=== PATIENT | male | born 1960 ===

== ENCOUNTER → 2018-05-28 08:21 | Outpatient (CLI) | payer OTHER, SELFPAY ==
[2018-05-28 09:52] LABS: BUN Creatinine Ratio 21.1 (6-22); Blood Urea Nitrogen 19 mg/dL (9-20); Calcium 9.1 mg/dL (8.4-10.2); Carbon Dioxide 27 mmol/L (22-32); Chloride 107 mmol/L (98-107); Estimated Glomerular Filt Rate > 60.0 mL/min (>60); Glucose 107 mg/dL (70-100); HEMOLYSIS < 15 (0-50); Sodium 144 mmol/L (137-145)
== END ==
PROVIDERS: PCP Internal Medicine; Visit Provider Internal Medicine Cardiovascular Disease
DX: I10 Essential (primary) hypertension (principal)
CPT/HCPCS: 36415; 80048

== ENCOUNTER → 2018-07-23 09:14 | Outpatient (CLI) | payer OTHER, SELFPAY ==
[2018-07-23 11:33] LABS: Cholesterol 193 mg/dL (140-199); HDL Cholesterol 31 mg/dL (40-60); LDL Cholesterol Calculated 96 mg/dL (<100); Triglycerides 331 mg/dL (35-150)
== END ==
PROVIDERS: PCP Internal Medicine; Visit Provider Internal Medicine Cardiovascular Disease
DX: E78.5 Hyperlipidemia, unspecified (principal)
CPT/HCPCS: 36415; 80061

== ENCOUNTER → 2019-02-18 09:30 | Outpatient (CLI) | payer OTHER, SELFPAY ==
[2019-02-18 10:38] LABS: Cholesterol 96 mg/dL (140-199); HDL Cholesterol 32 mg/dL (40-60); LDL Cholesterol Calculated 39 mg/dL (<100); Triglycerides 127 mg/dL (35-150)
== END ==
PROVIDERS: Family Provider Internal Medicine; PCP Internal Medicine; Visit Provider Internal Medicine Cardiovascular Disease
DX: E78.5 Hyperlipidemia, unspecified (principal)
CPT/HCPCS: 36415; 80061

== ENCOUNTER → 2019-08-07 07:52 | Outpatient (CLI) | payer OTHER, SELFPAY ==
[2019-08-07 08:46] LABS: Alanine Aminotransferase 32 IU/L (21-72); Albumin 4.4 g/dL (3.5-5.0); Albumin Globulin Ratio 1.8 (1.0-2.8); Alkaline Phosphatase 58 U/L (38-126); Aspartate Aminotransferase 29 IU/L (17-59); BUN Creatinine Ratio 18.9 (6-22); Bilirubin Total 0.5 mg/dL (0.2-1.3); Blood Urea Nitrogen 17 mg/dL (9-20); Calcium 9.6 mg/dL (8.4-10.2); Carbon Dioxide 27 mmol/L (22-32); Chloride 103 mmol/L (98-107); Cholesterol 96 mg/dL (140-199); Estimated Glomerular Filt Rate > 60.0 mL/min (>60); Globulin 2.4 g/dL (1.7-4.1); Glucose 110 mg/dL (80-110); HDL Cholesterol 33 mg/dL (40-60); HEMOLYSIS < 15 (0-50); LDL Cholesterol Calculated 20 mg/dL (<100); Potassium 4.4 mmol/L (3.4-5.1); Sodium 141 mmol/L (137-145); Total Protein 6.8 g/dL (6.3-8.2); Triglycerides 216 mg/dL (35-150)
== END ==
PROVIDERS: Family Provider Internal Medicine; PCP Internal Medicine; Visit Provider Internal Medicine Cardiovascular Disease
DX: E78.5 Hyperlipidemia, unspecified (principal)
CPT/HCPCS: 36415; 80053; 80061

== ENCOUNTER 2019-11-04 11:39 | Day surgery (SDC) | payer OTHER, SELFPAY ==
[2019-11-04] VITALS (8 sets, daily range): BP systolic 92–126; BP diastolic 58–71; PULSE 54–69; RESP 13–18; TEMP 36.2–36.9; O2SAT 92–99; BMI 38.7
[2019-11-04] MEDS: SODIUM CHLORIDE 0.9% 1,000 ML 200 ML IV (11:54)
--- NOTE | 2019-11-04 13:07 | P.HP_ITS ---
History of Present Illness History of Present Illness Date Patient Seen: 11/04/19 Time Patient Seen: 13:08 Chief complaint: [id number] SCREENING COLONOSCOPY Narrative: This is a 59-year-old man with history of obesity, hypertension, cardiac stents, prior screening colonoscopy 10 years ago which was normal. He is here for follow-up screening colonoscopy. He denies any melena, hematochezia, unexplained weight loss, or abdominal pain. ROS: Thirteen system review is negative other than as mentioned below and in HPI. GENERAL: Well groomed and cooperative. Morbidly obese, Appears stated age. Answers questions promptly and appropriately. Vital signs noted. HENT: Normocephalic, atraumatic. Hearing intact. Oral mucosa is pink and moist. EYES: Conjunctiva pink, sclera white, no periorbital swelling. CARDIOVASCULAR: Regular rate. No pedal edema. RESPIRATORY: Non tachypneic, breathing comfortably on room air. GASTROINTESTINAL: Abdomen soft and non-distended GENITALURINARY: No flank tenderness. MUSCULOSKELETAL: Equal tone and mass bilaterally. SKIN: Warm, dry, soft, appropriate color for ethnicity. No other lesions, rashes, or wounds. NEURO: Alert and Oriented X 3. No gross sensory deficits, or cognitive issues. PSYCH: Appropriate affect and mood. Patient History Medical History Asthma (Chronic) Chronic back pain (Chronic) Coronary artery disease (Chronic) Essential hypertension (Chronic) Gastroesophageal reflux disease without esophagitis (Chronic) Hyperlipidemia (Chronic 09/15/11) Obstructive sleep apnea syndrome (Chronic 09/15/11) Surgical History History of lumbosacral spine surgery (Inactive ~1979) Family & Social History Family History Family/Other Family history of diabetes mellitus Social History: household members spouse lives independently Yes caregiver/support person No Tobacco & Substance use: Smoking Status Never smoker alcohol intake current Meds Home Medications and Allergies Home Medications Medication Instructions Recorded Confirmed Type amlodipine 10 mg PO QDAY #30 tab 09/14/16 11/04/19 Rx lisinopril 10 mg PO QDAY #30 tab 09/14/16 11/04/19 Rx ibuprofen 600 mg PO Q6HP PRN #100 tab 11/07/17 11/04/19 Rx cyclobenzaprine 10 mg tablet 10 mg PO TID PRN tab 04/24/19 11/04/19 History evolocumab 140 mg/mL subcutaneous 140 mg SUBCUT Q2W 04/24/19 11/04/19 History pen injector atenolol 50 mg tablet 75 mg PO Q DAY #135 tab 05/12/19 11/04/19 Rx isosorbide mononitrate 60 mg 60 mg PO QAM #45 tab 08/25/19 11/04/19 Rx tablet,extended release 24 hr hydrocodone 7.5 mg-acetaminophen 1 - 2 tab PO Q6H PRN #90 tab 10/10/19 11/04/19 Rx 325 mg tablet aspirin 325 mg PO DAILY 11/04/19 11/04/19 History Allergies Allergy/AdvReac Type Severity Reaction Status Date / Time atorvastatin [ATORVASTATIN] AdvReac Intermediate MUSCLE PAIN Verified 11/04/19 12:04 rosuvastatin [From CRESTOR] AdvReac Intermediate MUSCLE PAIN Verified 11/04/19 12:04 Exam Vital Signs (past 8 hours): - 11/04/19 12:10 Temperature 97.2 F L Pulse Rate 60 Respiratory Rate 16 Blood Pressure 126/71 Pulse Oximetry 97 Oxygen Delivery Method Room Air Assessment & Plan Assessment and plan (1) At average risk for colon cancer: Current visit: Yes Status: Acute (2) Chronic back pain: Problem details: Pain agreement Qualifiers: Back pain location: low back pain Back pain laterality: unspecified Sciatica presence: unspecified whether sciatica present Qualified Code(s): M54.5 - Low back pain; G89.29 - Other chronic pain Current visit: No Status: Chronic (3) Coronary artery disease: Problem details: S/P drug eluting stent ramus intermedius Qualifiers: Coronary Disease-Associated Artery/Lesion type: [place] artery [place] vs. transplanted heart: [place] heart Associated angina: without angina Qualified Code(s): I25.10 - Atherosclerotic heart disease of [place] coronary artery without angina pectoris Current visit: No Status: Chronic (4) Obstructive sleep apnea syndrome: Current visit: No Status: Chronic (5) Obesity (BMI 30-39.9): Current visit: Yes Status: Acute Assessment & Plan narrative: Risks and benefits of screening colonoscopy and possible polypectomy were discussed with the patient including risk of bleeding, perforation, need for additional procedures, risks of anesthesia. The patient desires to proceed with colonoscopy procedure. Time Spent With Patient Time with patient: 15-24 minutes Quality VTE Deep Vein Thrombosis/Pulmonary Embolism Present on Admission: No
[2019-11-04] MEDS: fentaNYL 250 MCG/5 ML INJ IV (13:15)
[2019-11-04] MEDS: MIDAZOLAM 5 MG/5 ML VIAL IV (13:15)
--- NOTE | 2019-11-04 13:30 | PM.OP.ENDO ---
Operative Date/Time/Diagnoses Date of procedure: 11/04/19 Time of procedure: 13:30 Pre-op diagnosis: Average risk for colon cancer Post-op diagnosis: same Procedure & Clinicians Study performed: Screening Colonoscopy Same procedure as scheduled: Yes Indications: Average risk for colon cancer Surgeon: Jen Perez Procedure Notes SCOAP/Timeout: Performed Procedure in detail: The patient was brought to the room and placed in left lateral decubitus position with all bony prominences padded. A time-out was performed and then the patient was given procedural sedation starting with 4 mg of Versed and 100 mcg of fentanyl. Vitals were monitored throughout the procedure and remained stable. Once adequately sedated the procedure was begun. A rectal exam was performed revealing no abnormalities. The colonoscope was then introduced to the rectum and advanced to the cecum in the usual fashion. The cecum was identified by the appendiceal orifice, the mucosal try fold, and the ileocecal valve. The scope was then retracted while rotating side to side and examining each mucosal fold. At the conclusion procedure retroflexion was performed and small grade 1-2 internal hemorrhoids without stigmata of bleeding were seen. The scope was then withdrawn from the rectum the procedure was concluded. The patient tolerated the procedure well was transferred to the PACU in stable condition. Scope withdrawal time: 8 Sedation minutes: 17 Findings: internal hemorrhoids Specimen(s): none sent Complications: none Impression: Low-grade internal hemorrhoids, otherwise normal colon Post-procedure Recommendations: Colonscopy in 10 years Follow up: as needed Disposition: PACU
--- NOTE | 2019-11-04 13:40 | SUR.PHASEI ---
to pacu awake/drowsy, denies pain/nausea. Encouraged to sleep.
--- NOTE | 2019-11-04 13:47 | SUR.PHASEI ---
awake, oriented HOB elevated, juice given, denies pain
== END 2019-11-04 14:12 | disposition home or self-care (01) ==
PROVIDERS: Family Provider Internal Medicine; PCP Internal Medicine; Visit Provider Surgery
PROC: 0DJD8ZZ Inspection of Lower Intestinal Tract, Via Natural or Artificial Opening Endoscopic (ICD-10-PCS; CPT 45378; principal; 2019-11-04 13:00)
DX: Z12.11 Encounter for screening for malignant neoplasm of colon (principal); I25.10 Atherosclerotic heart disease of native coronary artery without angina pectoris; G47.33 Obstructive sleep apnea (adult) (pediatric); E66.9 Obesity, unspecified; K64.0 First degree hemorrhoids
CPT/HCPCS: 45378; 99152; J2250; J3010

== ENCOUNTER → 2020-07-13 12:01 | Outpatient (CLI) | payer OTHER, SELFPAY ==
[2020-07-13 14:05] LABS: Alanine Aminotransferase 29 IU/L (<50); Albumin 4.2 g/dL (3.5-5.0); Albumin Globulin Ratio 1.8 (1.0-2.8); Alkaline Phosphatase 61 U/L (38-126); Aspartate Aminotransferase 30 IU/L (17-59); BUN Creatinine Ratio 16.5 (6-22); Bilirubin Total 0.5 mg/dL (0.2-1.3); Blood Urea Nitrogen 14 mg/dL (9-20); Calcium 9.3 mg/dL (8.4-10.2); Carbon Dioxide 26 mmol/L (22-32); Chloride 108 mmol/L (98-107); Estimated Glomerular Filt Rate > 60.0 mL/min (>60); Globulin 2.3 g/dL (1.7-4.1); Glucose 95 mg/dL (80-110); HEMOLYSIS < 15 (0-50); Potassium 4.4 mmol/L (3.4-5.1); Sodium 140 mmol/L (137-145); Total Protein 6.5 g/dL (6.3-8.2)
[2020-07-13 14:29] LABS: Prostate Specific Antigen Scrn 0.726 ng/mL (0.1-4.0)
== END ==
PROVIDERS: Family Provider Internal Medicine; PCP Internal Medicine; Referring Provider Internal Medicine; Visit Provider Internal Medicine
DX: E78.2 Mixed hyperlipidemia (principal); I10 Essential (primary) hypertension; I25.10 Atherosclerotic heart disease of native coronary artery without angina pectoris; Z12.5 Encounter for screening for malignant neoplasm of prostate
CPT/HCPCS: 36415; 80053; G0103

== ENCOUNTER → 2021-06-27 08:36 | Outpatient (CLI) | payer OTHER, SELFPAY ==
[2021-06-27 10:14] LABS: Alanine Aminotransferase 25 IU/L (<50); Albumin 3.9 g/dL (3.5-5.0); Albumin Globulin Ratio 1.6 (1.0-2.8); Alkaline Phosphatase 51 U/L (38-126); Aspartate Aminotransferase 26 IU/L (17-59); BUN Creatinine Ratio 14.7 (6-22); Bilirubin Total 0.4 mg/dL (0.2-1.3); Blood Urea Nitrogen 14 mg/dL (9-20); Calcium 9.6 mg/dL (8.4-10.2); Carbon Dioxide 28 mmol/L (22-32); Chloride 108 mmol/L (98-107); Cholesterol 96 mg/dL (140-199); Estimated Glomerular Filt Rate > 60.0 mL/min (>60); Globulin 2.4 g/dL (1.7-4.1); Glucose 106 mg/dL (80-110); HDL Cholesterol 31 mg/dL (40-60); HEMOLYSIS < 15 (0-50); LDL Cholesterol Calculated 29 mg/dL (<100); Potassium 4.7 mmol/L (3.4-5.1); Sodium 142 mmol/L (137-145); Total Protein 6.3 g/dL (6.3-8.2); Triglycerides 179 mg/dL (35-150)
== END ==
PROVIDERS: Family Provider Internal Medicine; PCP Internal Medicine; Referring Provider Internal Medicine Cardiovascular Disease; Visit Provider Internal Medicine Cardiovascular Disease
DX: E78.5 Hyperlipidemia, unspecified (principal)
CPT/HCPCS: 36415; 80053; 80061

== ENCOUNTER → 2022-07-01 07:31 | Outpatient (CLI) | payer OTHER, SELFPAY ==
[2022-07-01 09:45] LABS: Alanine Aminotransferase 38 IU/L (<50); Albumin 4.2 g/dL (3.5-5.0); Albumin Globulin Ratio 1.6 (1.0-2.8); Alkaline Phosphatase 63 U/L (38-126); Aspartate Aminotransferase 34 IU/L (17-59); Bilirubin Total 0.4 mg/dL (0.2-1.3); Blood Urea Nitrogen 19 mg/dL (9-20); Calcium 8.9 mg/dL (8.4-10.2); Carbon Dioxide 25 mmol/L (22-32); Chloride 108 mmol/L (98-107); Estimated Glomerular Filt Rate > 60 mL/min (>60); Globulin 2.6 g/dL (1.7-4.1); Glucose 103 mg/dL (80-110); HEMOLYSIS < 15 (0-50); Potassium 4.4 mmol/L (3.4-5.1); Sodium 143 mmol/L (137-145); Total Protein 6.8 g/dL (6.3-8.2)
== END ==
PROVIDERS: Family Provider Internal Medicine; PCP Internal Medicine; Referring Provider Internal Medicine Cardiovascular Disease; Visit Provider Internal Medicine Cardiovascular Disease
DX: E78.5 Hyperlipidemia, unspecified (principal)
CPT/HCPCS: 36415; 80053

== ENCOUNTER → 2022-12-29 09:16 | Outpatient (CLI) | payer OTHER, SELFPAY ==
[2022-12-29 10:16] LABS: Cholesterol 103 mg/dL (140-199); HDL Cholesterol 38 mg/dL (40-60); LDL Cholesterol Calculated 38 mg/dL (<100); Triglycerides 136 mg/dL (35-150)
== END ==
PROVIDERS: Family Provider Internal Medicine; PCP Internal Medicine; Referring Provider Internal Medicine Cardiovascular Disease; Visit Provider Internal Medicine Cardiovascular Disease
DX: E78.5 Hyperlipidemia, unspecified (principal)
CPT/HCPCS: 36415; 80061

== ENCOUNTER → 2023-09-25 08:36 | Outpatient (CLI) | payer OTHER, SELFPAY ==
[2023-09-25 11:14] LABS: Alanine Aminotransferase 29 IU/L (<50); Albumin Globulin Ratio 1.7 (1.0-2.8); Alkaline Phosphatase 51 U/L (38-126); Aspartate Aminotransferase 29 IU/L (17-59); BUN Creatinine Ratio 19.5 (6-22); Bilirubin Total 0.5 mg/dL (0.2-1.3); Blood Urea Nitrogen 17 mg/dL (9-20); Calcium 9.3 mg/dL (8.4-10.2); Carbon Dioxide 24 mmol/L (22-32); Chloride 108 mmol/L (98-107); Cholesterol 101 mg/dL (140-199); Estimated Glomerular Filt Rate > 60 mL/min (>60); Globulin 2.4 g/dL (1.7-4.1); Glucose 105 mg/dL (80-110); HDL Cholesterol 33 mg/dL (40-60); HEMOLYSIS < 15 (0-50); LDL Cholesterol Calculated 44 mg/dL (<100); Potassium 4.3 mmol/L (3.4-5.1); Sodium 139 mmol/L (137-145); Total Protein 6.4 g/dL (6.3-8.2); Triglycerides 119 mg/dL (35-150)
[2023-09-25 11:36] LABS: Prostate Specific Antigen Scrn 0.817 ng/mL (0.1-4.0)
== END ==
PROVIDERS: Family Provider Internal Medicine; PCP Internal Medicine; Referring Provider Internal Medicine; Visit Provider Internal Medicine
DX: I10 Essential (primary) hypertension (principal); I25.10 Atherosclerotic heart disease of native coronary artery without angina pectoris; E78.5 Hyperlipidemia, unspecified; Z12.5 Encounter for screening for malignant neoplasm of prostate
CPT/HCPCS: 36415; 80053; 80061; G0103

== ENCOUNTER → 2024-09-15 08:45 | Outpatient (CLI) | payer OTHER, SELFPAY ==
[2024-09-15 10:46] LABS: Alanine Aminotransferase 33 IU/L (<50); Albumin 4.3 g/dL (3.5-5.0); Albumin Globulin Ratio 1.9 (1.0-2.8); Alkaline Phosphatase 71 U/L (38-126); Aspartate Aminotransferase 29 IU/L (17-59); Bilirubin Total 0.6 mg/dL (0.2-1.3); Blood Urea Nitrogen 16 mg/dL (9-20); Calcium 9.5 mg/dL (8.4-10.2); Carbon Dioxide 27 mmol/L (22-32); Chloride 108 mmol/L (98-107); Cholesterol 104 mg/dL (140-199); Estimated Glomerular Filt Rate > 60 mL/min (>60); Globulin 2.3 g/dL (1.7-4.1); Glucose 119 mg/dL (80-110); HDL Cholesterol 35 mg/dL (40-60); HEMOLYSIS < 15 (0-50); LDL Cholesterol Calculated 37 mg/dL (<100); Potassium 4.5 mmol/L (3.4-5.1); Sodium 141 mmol/L (137-145); Total Protein 6.6 g/dL (6.3-8.2); Triglycerides 158 mg/dL (35-150)
== END ==
LOC: LAB 08:46
PROVIDERS: Family Provider Internal Medicine; PCP Internal Medicine; Referring Provider Internal Medicine; Visit Provider Internal Medicine
DX: I10 Essential (primary) hypertension (principal); I25.10 Atherosclerotic heart disease of native coronary artery without angina pectoris; E78.2 Mixed hyperlipidemia; R20.2 Paresthesia of skin
CPT/HCPCS: 36415; 80053; 80061

== ENCOUNTER → 2024-10-23 07:36 | Outpatient (CLI) | payer OTHER, SELFPAY | LOC: PHYS 07:37 | PROVIDERS: Family Provider Internal Medicine; PCP Internal Medicine; Referring Provider Internal Medicine; Visit Provider Internal Medicine | DX: M20.20 Hallux rigidus, unspecified foot (principal); M79.601 Pain in right arm; M79.602 Pain in left arm | CPT/HCPCS: 95885; 95886; 95912 ==

== ENCOUNTER → 2025-02-11 13:02 | Outpatient (CLI) | payer OTHER, SELFPAY ==
--- NOTE | 2025-02-11 13:03 | DI.NM.S_ITS ---
PROCEDURE: NM NYLA PERF SPECT REST & STR Rest and exercise myocardial perfusion SPECT with gated imaging and ejection fraction RADIOPHARMACEUTICAL: 25.2 mCi Tc-99m sestamibi IV at rest and 26 mCi Tc-99m sestamibi IV at peak exercise. A [id number] was performed. INDICATIONS: CAD,HX CA STENT PLACEMENT TECHNIQUE: Radiopharmaceutical was injected at peak stress test, and also at rest. SPECT images were obtained. SPECT myocardial perfusion images were displayed in short axis, horizontal long axis, and vertical long axis views. Gated images were reviewed using [employer] software. COMPARISON: None. CARDIAC STRESS: A standard Johann treadmill exercise tolerance test was performed by the patient under the supervision of an attending staff. The patient exercised for 5 minutes and 56 seconds; 7.0 METS; functional aerobic impairment (TORSTEN) is +20%. Hemodynamic data: There is normal blood pressure and heart rate response to exercise stress. Patient achieved 83% of maximum predicted heart rate at peak exercise. Peak blood pressure 180/60. Symptoms: Patient denied chest pain during exercise. EKG: Rest ECG sinus rhythm 71 bpm. Exercise ECG sinus tachycardia, no ST segment changes or arrhythmia. FINDINGS: Raw data: There is good myocardial labeling by radiotracer. No significant motion artifacts. [id number] ratio is 0.3 to (normal is less than 0.38 for sestamibi tracer, and less than 0.50 for thallium tracer). Left ventricle function: Gated images demonstrate normal left ventricle wall thickening. No segmental wall motion abnormality. No transient ischemic dilation; TID is 1.12 (normal less than 1.3). The left ventricle resting end-diastolic volume is 194 mL. Left ventricle stress ejection fraction is 63%; normal values are above 45%. Myocardial perfusion: There is a very small size, mild intensity reversible apical inferolateral wall defect. No fixed. IMPRESSION: Overall low risk but abnormal study. The very small size, mild intensity reversible apical inferolateral wall defect is consistent with inducible ischemia. Dilated LV based on calculated LVEDV with normal function. No evidence of exercise-induced ECG changes. Normal hemodynamic response. Slightly reduced exercise capacity. Dictated by: Dana Kuhn D.O. on 02/13/2025 at 17:26 Approved by: Dana Kuhn D.O. on 02/13/2025 at 17:32
== END ==
PROVIDERS: Family Provider Internal Medicine; PCP Internal Medicine; Referring Provider Nurse Practitioner; Visit Provider Nurse Practitioner
DX: I25.10 Atherosclerotic heart disease of native coronary artery without angina pectoris (principal); Z95.5 Presence of coronary angioplasty implant and graft
CPT/HCPCS: 78452; 93017; A9502

== ENCOUNTER → 2025-08-12 07:31 | Outpatient (CLI) | payer OTHER, SELFPAY ==
[2025-08-12 09:05] LABS: Alanine Aminotransferase 33 IU/L (<50); Albumin 4.2 g/dL (3.5-5.0); Albumin Globulin Ratio 1.8 (1.0-2.8); Alkaline Phosphatase 58 U/L (38-126); Blood Urea Nitrogen 15 mg/dL (9-20); Calcium 9.1 mg/dL (8.4-10.2); Carbon Dioxide 25 mmol/L (22-32); Chloride 107 mmol/L (98-107); Cholesterol 94 mg/dL (140-199); Estimated Glomerular Filt Rate > 60 mL/min (>60); Globulin 2.3 g/dL (1.7-4.1); Glucose 95 mg/dL (70-99); HDL Cholesterol 40 mg/dL (40-60); HEMOLYSIS < 15 (0-50); Potassium 4.3 mmol/L (3.4-5.1); Sodium 141 mmol/L (137-145); Total Protein 6.5 g/dL (6.3-8.2); Triglycerides 121 mg/dL (35-150)
== END ==
PROVIDERS: Family Provider Internal Medicine; PCP Internal Medicine; Referring Provider Internal Medicine; Visit Provider Internal Medicine
DX: I10 Essential (primary) hypertension (principal); Z12.5 Encounter for screening for malignant neoplasm of prostate; E78.2 Mixed hyperlipidemia; F11.20 Opioid dependence, uncomplicated; I25.10 Atherosclerotic heart disease of native coronary artery without angina pectoris
CPT/HCPCS: 36415; 80053; 80061; G0103